=== PATIENT | male | born 1965 | race Caucasian/White ===

== ENCOUNTER 2019-10-12 22:52 | Emergency (ER) | payer BC ==
[~2019-10-12] VITALS: Ht 180.3 cm; Wt 132.5 kg
[2019-10-12] MEDS ORDERED: KETOROLAC 30 MG/ML VIAL (J1885) IV ONE (23:30)
[2019-10-13 00:06] LABS: INR 1.05; PARTIAL THROMBOPLASTIN TIME 26.1 SECONDS (25.0-38.4); PROTHROMBIN TIME 13.4 SECONDS (11.8-14.0)
[2019-10-13 00:09] LABS: D-DIMER QUANT 293.08 ng/ml (<500)
[2019-10-13 00:10] LABS: BASO # 0.1 10^3/uL (0.0-0.2); BASO % 0.7 % (0.0-1.0); EOS # 0.2 10^3/uL (0.0-0.5); EOS % 2.1 % (0.0-3.0); HEMATOCRIT 45.5 % (42.0-52.0); LYMPH # 2.3 10^3/uL (1.5-5.0); LYMPH % 22.4 % (24.0-44.0); MEAN CORPUSCULAR HGB CONC 35.2 g/dl (32.0-36.5); MEAN CORPUSCULAR VOLUME 85.4 fl (80.0-96.0); MONO % 10.2 % (0.0-5.0); NEUTROPHILS # 6.5 10^3/uL (1.5-8.5); PLATELET COUNT, AUTOMATED 214 10^3/uL (150-450); RED BLOOD COUNT 5.33 10^6/uL (4.30-6.10); WHITE BLOOD COUNT 10.1 10^3/uL (4.0-10.0)
[2019-10-13 00:12] LABS: ERYTHROCYTE SEDIMENTATION RATE 26 mm/hr (0-20)
[2019-10-13 00:19] LABS: ALBUMIN 3.9 GM/DL (3.2-5.2); BILIRUBIN,DIRECT 0.1 MG/DL (0.0-0.2); BILIRUBIN,TOTAL 0.5 MG/DL (0.2-1.0); C REACTIVE PROTEIN QUANTITATIV 0.41 MG/DL (0.00-0.30)
[2019-10-13 00:36] LABS: HEMOGLOBIN A1c 9.6 %
[2019-10-13 00:56] LABS: URIC ACID 3.9 MG/DL (3.5-7.2)
[2019-10-13] MEDS ORDERED: NAPR-837 PO (01:08)
[2019-10-13] MEDS ORDERED: COLC1TAB13 PO (01:08)
[2019-10-13 01:40] VITALS: BP 150/88
--- NOTE | 2019-10-13 06:38 | ECGEPIP ---
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
--- NOTE | 2019-10-13 11:31 | REP ---
LEFT SHOULDER SERIES: 10/12/2019. Clinical history: Left shoulder pain. Findings: No prior study. Prominent spurring from the clavicle and acromion at the AC joint and a peripheral acromial spur. Glenohumeral joint degenerative changes also noted. No fracture of the humerus, clavicles, scapula or ribs visible. There is soft tissue calcification about the greater tuberosity humeral head suggesting calcific tendinopathy. No subluxation or dislocation. Impression: 1. AC joint arthritis that may be contributing to some impingement at the rotator cuff. 2. Glenohumeral joint arthritis. 3. Calcific tendinopathy over the greater tuberosity of the humeral head. No fracture. Electronically Signed by Ga Giang MD 10/13/2019 08:24 P
--- NOTE | 2019-10-13 14:30 | REP ---
CHEST PA AND LATERAL: 10/12/2019. Clinical history: Left shoulder pain. Findings: No prior studies. The two-view show the lungs well inflated. CP angles are sharply defined. There is no pleural effusion, lateral pleural thickening, apical scar, pneumothorax. Hilar contours symmetric, mildly prominent suggesting some pulmonary artery hypertension. I do not see pulmonary edema, dense consolidation or parenchymal mass. Heart not enlarged. Aorta is tortuous but without aneurysm. Airway intact. Bony thorax without compression deformity. There are degenerative changes in the mid thoracic spine. Impression: 1. Some mild hyperinflation and prominence pulmonary arteries suggesting pulmonary artery hypertension, likely on the basis of COPD. 2. No cardiomegaly, edema or other acute finding. Electronically Signed by Ga Giang MD 10/13/2019 08:31 P
== END 2019-10-13 01:41 | disposition home or self-care (01) ==
LOC: M ED 22:52
DX: M10.012 Idiopathic gout, left shoulder (principal); E11.9 Type 2 diabetes mellitus without complications; M19.012 Primary osteoarthritis, left shoulder; M65.222 Calcific tendinitis, left upper arm; R91.8 Other nonspecific abnormal finding of lung field; Z88.5 Allergy status to narcotic agent; Z79.899 Other long term (current) drug therapy
CPT/HCPCS: 71046; 73030; 80047; 80076; 83036; 84550; 85025; 85379; 85610; 85652; 85730; 86140; 93005; 96374; 99284; J1885

== ENCOUNTER → 2019-10-31 | Outpatient (REF) | payer BC ==
[~2019-10-31] MED LIST: COLC1TAB13 PO; NAPR-837 PO
[2019-10-31 15:15] LABS: BASO # 0.1 10^3/uL (0.0-0.2); BASO % 0.9 % (0.0-1.0); EOS # 0.2 10^3/uL (0.0-0.5); EOS % 2.2 % (0.0-3.0); HEMATOCRIT 50.6 % (42.0-52.0); HEMOGLOBIN 17.1 g/dl (13.5-17.5); LYMPH # 2.3 10^3/uL (1.5-5.0); LYMPH % 29.8 % (24.0-44.0); MEAN CORPUSCULAR HEMOGLOBIN 29.9 pg (27.0-33.0); MEAN CORPUSCULAR HGB CONC 33.8 g/dl (32.0-36.5); MEAN CORPUSCULAR VOLUME 88.5 fl (80.0-96.0); MONO # 0.6 10^3/uL (0.0-0.8); NEUTROPHILS # 4.4 10^3/uL (1.5-8.5); NEUTROPHILS % 58.7 % (36.0-66.0); PLATELET COUNT, AUTOMATED 197 10^3/uL (150-450); RED BLOOD COUNT 5.72 10^6/uL (4.30-6.10); WHITE BLOOD COUNT 7.6 10^3/uL (4.0-10.0)
[2019-10-31 15:25] LABS: ALBUMIN 4.1 GM/DL (3.2-5.2); ALT/SGPT 37 U/L (12-78); BILIRUBIN,TOTAL 0.7 MG/DL (0.2-1.0); BLOOD UREA NITROGEN 14 MG/DL (7-18); CALCIUM LEVEL 9.1 MG/DL (8.5-10.1); CARBON DIOXIDE LEVEL 30 MEQ/L (21-32); CHLORIDE LEVEL 97 MEQ/L (98-107); CHOLESTEROL LEVEL 255 MG/DL (<200); CREATININE FOR GFR 0.78 MG/DL (0.70-1.30); FREE T4 1.09 NG/DL (0.76-1.46); GLOMERULAR FILTRATION RATE > 60.0 (>56); GLUCOSE, FASTING 225 MG/DL (70-100); HDL CHOLESTEROL 43 MG/DL (>40); LDL CHOLESTEROL 178 MG/DL (<100); NON-HDL-C 212 MG/DL; POTASSIUM SERUM 4.1 MEQ/L (3.5-5.1); PTH INTACT 23.3 PG/ML (18.5-88.0); SODIUM LEVEL 135 MEQ/L (136-145); TRIGLYCERIDES LEVEL 171 MG/DL (<150)
[2019-10-31 15:34] LABS: APPEARANCE, URINE CLEAR (CLEAR); BACTERIA, URINE AUTO NEGATIVE (NEGATIVE); BILIRUBIN, URINE AUTO NEGATIVE (NEGATIVE); BLOOD, URINE BLOOD NEGATIVE (NEGATIVE); COLOR, URINE YELLOW (YELLOW); GLUCOSE, URINE (UA) AUTO 3+ mg/dL (NEGATIVE); KETONE, URINE AUTO NEGATIVE (NEGATIVE); LEUKOCYTE ESTERASE, URINE AUTO NEGATIVE (NEGATIVE); MUCUS, URINE SMALL (NEGATIVE); NITRITE, URINE AUTO NEGATIVE (NEGATIVE); PROTEIN, URINE AUTO NEGATIVE (NEGATIVE); RBC, URINE AUTO 3 /HPF (0-3); SQUAMOUS EPITHELIAL CELL UR AU 0 /HPF (0-6); UROBILINOGEN, URINE AUTO 0.2 mg/dL (0.0-2.0); WBC, URINE AUTO 1 /HPF (0-3)
[2019-10-31 15:49] LABS: MALB URINE SIEMENS 27.9 MG/L; MAU/CREAT RATIO 22.5 MCG/MG (0.0-30.0)
[2019-11-01 14:07] LABS: H PYLORI SERUM QUANT IgG ABY 3.49 (0.00-0.79); INSULIN LEVEL 10.7 uIU/mL (2.6-24.9)
== END ==
LOC: M SFHCPLAZ 11:10
PROVIDERS: ATTEND Family Medicine
DX: Z12.5 Encounter for screening for malignant neoplasm of prostate (principal); E78.2 Mixed hyperlipidemia; E11.8 Type 2 diabetes mellitus with unspecified complications; I10 Essential (primary) hypertension; E55.9 Vitamin D deficiency, unspecified; M75.42 Impingement syndrome of left shoulder
CPT/HCPCS: 36415; 80053; 80061; 81001; 82043; 82306; 83525; 83970; 84439; 84443; 85025; 86677; G0103

== ENCOUNTER → 2020-03-10 | Outpatient (CLI) | payer BC ==
[~2020-03-10] MED LIST changes: +METF500T13 PO
== END ==
LOC: M LABSMTC 14:08
PROVIDERS: ATTEND Anesthesiology
DX: Z03.818 Encounter for observation for suspected exposure to other biological agents ruled out (principal); Z11.59 Encounter for screening for other viral diseases
CPT/HCPCS: C9803; U0003

== ENCOUNTER 2020-03-13 06:35 | Day surgery (SDC) | payer BC ==
[~2020-03-13] VITALS: Ht 180.3 cm; Wt 131.5 kg
[2020-03-13] MEDS ORDERED: NS 1,000 ML IV ONE (07:00)
[2020-03-13] MEDS ORDERED: propofoL 200 MG/20 ML VIAL As Ordered ONE (07:50)
--- NOTE | 2020-03-13 07:59 | ROOR ---
Patient Name: Andrew Sharpe Procedure Date: 03/13/2020 7:25 AM Date of : 1965 Age: 54 Room: [facility] Gender: Male Note Status: Finalized Procedure: Total Colonoscopy to Cecum + Cold Snare + Biopsies Polypectomy + Hemoclips Indications: Screening for colorectal malignant neoplasm Providers: Polo Knott MD Referring MD: Jordin Hall MD Requesting Provider: Medicines: Monitored Anesthesia Care Complications: No immediate complications. Procedure: Pre-Anesthesia Assessment: - The heart rate, respiratory rate, oxygen saturations, blood pressure, adequacy of pulmonary ventilation, and response to care were monitored throughout the procedure. The Colonoscope was introduced through the anus and advanced to the cecum, identified by appendiceal orifice and ileocecal valve. The colonoscopy was performed without difficulty. The patient tolerated the procedure well. The quality of the bowel preparation was good. Findings: The perianal and digital rectal examinations were normal. Non-bleeding internal hemorrhoids were found during retroflexion. The hemorrhoids were small and Grade I (internal hemorrhoids that do not prolapse). A small polyp was found at 30 cm proximal to the anus. The polyp was sessile. The polyp was removed with a cold snare. Resection and retrieval were complete. To prevent bleeding after the polypectomy, one hemostatic clip was successfully placed (MR conditional). There was no bleeding at the end of the procedure. A small polyp was found at 50 cm proximal to the anus. The polyp was sessile. The polyp was removed with a cold biopsy forceps. Resection and retrieval were complete. The exam was otherwise without abnormality on direct and retroflexion views. Scattered small-mouthed diverticula were found in the recto-sigmoid colon, sigmoid colon and descending colon. The exam was otherwise without abnormality. Impression: - Non-bleeding internal hemorrhoids. - One small polyp at 30 cm proximal to the anus, removed with a cold snare. Resected and retrieved. Clip (MR conditional) was placed. - One small polyp at 50 cm proximal to the anus, removed with a cold biopsy forceps. Resected and retrieved. - The examination was otherwise normal on direct and retroflexion views. - Diverticulosis in the recto-sigmoid colon, in the sigmoid colon and in the descending colon. - The examination was otherwise normal. - The exam was otherwise normal to the cecum. Recommendation: - Patient has a contact number available for emergencies. The signs and symptoms of potential delayed complications were discussed with the patient. Return to normal activities tomorrow. Written discharge instructions were provided to the patient. - High fiber diet. - Discharge patient to home. - Continue present medications. - Await pathology results. - Telephone GI clinic for pathology results in 1 week. - Repeat colonoscopy in 5 years for surveillance based on pathology results. - Return to referring physician. - The findings and recommendations were discussed with the patient's family. Polo Knott MD Polo Knott MD 03/13/2020 7:58:22 AM Electronically signed by Polo Knott MD Number of Addenda: 0 Note Initiated On: 03/13/2020 7:25 AM Estimated Blood Loss: Estimated blood loss: none.
[2020-03-13 08:20] VITALS: BP 138/96
== END 2020-03-13 08:29 | disposition home or self-care (01) ==
LOC: M OPP 06:35
PROVIDERS: ATTEND Internal Medicine Gastroenterology
DX: Z12.11 Encounter for screening for malignant neoplasm of colon (principal); K63.5 Polyp of colon; K64.0 First degree hemorrhoids; K57.30 Diverticulosis of large intestine without perforation or abscess without bleeding; Z79.84 Long term (current) use of oral hypoglycemic drugs; Z88.5 Allergy status to narcotic agent; F17.210 Nicotine dependence, cigarettes, uncomplicated

== ENCOUNTER 2020-11-24 19:24 | Emergency (ER) | payer BC ==
[~2020-11-24] VITALS: Ht 180.3 cm; Wt 131.4 kg
[~2020-11-24 19:24] MED LIST changes: +COLC0.6T47 PO; -COLC1TAB13 PO
[2020-11-24 21:21] LABS: BASO # 0.1 10^3/uL (0.0-0.2); BASO % 0.8 % (0.0-1.0); EOS # 0.3 10^3/uL (0.0-0.5); EOS % 4.6 % (0.0-3.0); HEMATOCRIT 43.7 % (42.0-52.0); HEMOGLOBIN 14.4 g/dl (13.5-17.5); LYMPH # 2.8 10^3/uL (1.5-5.0); LYMPH % 38.4 % (24.0-44.0); MEAN CORPUSCULAR HEMOGLOBIN 28.7 pg (27.0-33.0); MEAN CORPUSCULAR VOLUME 87.2 fl (80.0-96.0); MONO # 0.8 10^3/uL (0.0-0.8); MONO % 10.5 % (2.0-8.0); NEUTROPHILS # 3.3 10^3/uL (1.5-8.5); NEUTROPHILS % 45.4 % (36.0-66.0); PLATELET COUNT, AUTOMATED 203 10^3/uL (150-450); RED BLOOD COUNT 5.01 10^6/uL (4.30-6.10); WHITE BLOOD COUNT 7.3 10^3/uL (4.0-10.0)
[2020-11-24 21:46] LABS: ALBUMIN 3.6 GM/DL (3.2-5.2); ALT/SGPT 27 U/L (12-78); BILIRUBIN,DIRECT < 0.1 MG/DL (0.0-0.2); BILIRUBIN,TOTAL 0.5 MG/DL (0.2-1.0); BLOOD UREA NITROGEN 16 MG/DL (7-18); CALCIUM LEVEL 8.7 MG/DL (8.5-10.1); CARBON DIOXIDE LEVEL 29 MEQ/L (21-32); CHLORIDE LEVEL 100 MEQ/L (98-107); CREATININE FOR GFR 0.88 MG/DL (0.70-1.30); GLOMERULAR FILTRATION RATE > 60.0 (>56); GLUCOSE, FASTING 297 MG/DL (70-100); SODIUM LEVEL 134 MEQ/L (136-145); TOTAL PROTEIN 7.6 GM/DL (6.4-8.2)
[2020-11-24 21:50] LABS: ERYTHROCYTE SEDIMENTATION RATE 18 mm/hr (0-20)
--- NOTE | 2020-11-24 22:08 | REPVR ---
PROCEDURE INFORMATION: Exam: XR Left Toe(s) Exam date and time: 11/24/2020 9:31 PM Age: 55 years old Clinical indication: Other: Infection; Additional info: Left great toe infection; ? Osteo TECHNIQUE: Imaging protocol: XR Left toes. Views: Minimum 2 views. COMPARISON: No relevant prior studies available. FINDINGS: Bones/joints: Large ulceration on the medial aspect of the great toe. No cortical abnormality of the underlying bones. Soft tissues: Normal. IMPRESSION: No bony abnormality underlying the ulceration to suggest osteomyelitis. Electronically signed by: Vinod Nieves On 11/24/2020 22:09:24 PM
[2020-11-24 22:44] VITALS: BP 145/88
== END 2020-11-24 22:49 | disposition home or self-care (01) ==
LOC: M ED 19:24
DX: E11.621 Type 2 diabetes mellitus with foot ulcer (principal); Z88.6 Allergy status to analgesic agent; Z79.899 Other long term (current) drug therapy

== ENCOUNTER → 2021-04-19 | Outpatient (CLI) | payer BC ==
[2021-04-19 11:44] LABS: BASO # 0.1 10^3/uL (0.0-0.2); BASO % 0.6 % (0.0-1.0); EOS # 0.5 10^3/uL (0.0-0.5); EOS % 5.8 % (0.0-3.0); HEMATOCRIT 46.7 % (42.0-52.0); HEMOGLOBIN 15.9 g/dl (13.5-17.5); LYMPH # 2.2 10^3/uL (1.5-5.0); LYMPH % 27.3 % (24.0-44.0); MEAN CORPUSCULAR HEMOGLOBIN 29.9 pg (27.0-33.0); MEAN CORPUSCULAR VOLUME 87.9 fl (80.0-96.0); MONO # 0.9 10^3/uL (0.0-0.8); MONO % 10.7 % (2.0-8.0); NEUTROPHILS # 4.4 10^3/uL (1.5-8.5); NEUTROPHILS % 55.3 % (36.0-66.0); PLATELET COUNT, AUTOMATED 223 10^3/uL (150-450); RED BLOOD COUNT 5.31 10^6/uL (4.30-6.10)
[2021-04-19 12:11] LABS: ALBUMIN 3.9 GM/DL (3.2-5.2); ALT/SGPT 32 U/L (12-78); BILIRUBIN,TOTAL 0.5 MG/DL (0.2-1.0); BLOOD UREA NITROGEN 14 MG/DL (7-18); C REACTIVE PROTEIN QUANTITATIV 0.51 MG/DL (0.00-0.30); CALCIUM LEVEL 9.1 MG/DL (8.5-10.1); CARBON DIOXIDE LEVEL 28 MEQ/L (21-32); CHLORIDE LEVEL 103 MEQ/L (98-107); CHOLESTEROL LEVEL 218 MG/DL (<200); CHOLESTEROL RISK RATIO 6.228 (<5); GLOMERULAR FILTRATION RATE > 60.0 (>56); GLUCOSE, FASTING 139 MG/DL (70-100); HDL CHOLESTEROL 35 MG/DL (>40); HEMOGLOBIN A1c 7.4 %; LDL CHOLESTEROL 135 MG/DL (<100); NON-HDL-C 183 MG/DL; POTASSIUM SERUM 4.2 MEQ/L (3.5-5.1); SODIUM LEVEL 138 MEQ/L (136-145); TRIGLYCERIDES LEVEL 240 MG/DL (<150)
[2021-04-19 12:25] LABS: ERYTHROCYTE SEDIMENTATION RATE 5 mm/hr (0-20)
[2021-04-21 16:09] LABS: Chitobioside Carbohydrat (ACCA 77 units (0-90); Laminaribioside Carbohyd (ALCA 15 units (0-60); Mannobioside Carbohydrat (AMCA 44 units (0-100); Saccharomyces cerevisiae IgG A 42 units (0-50)
== END ==
LOC: M WUC 09:39
PROVIDERS: ATTEND Physician Assistant
DX: K60.3 Anal fistula (principal); E78.2 Mixed hyperlipidemia; E11.8 Type 2 diabetes mellitus with unspecified complications; I10 Essential (primary) hypertension

== ENCOUNTER → 2021-06-09 | Outpatient (REF) | payer BC | LOC: M LAB REF 19:34 | PROVIDERS: ATTEND Physician Assistant | DX: L02.31 Cutaneous abscess of buttock (principal) ==

== ENCOUNTER → 2022-01-28 | Outpatient (CLI) | payer BC, OTHER ==
[2022-01-28 14:05] LABS: ALBUMIN 3.8 GM/DL (3.2-5.2); ALT/SGPT 25 U/L (12-78); BILIRUBIN,TOTAL 0.7 MG/DL (0.2-1.0); BLOOD UREA NITROGEN 14 MG/DL (7-18); CALCIUM LEVEL 9.1 MG/DL (8.5-10.1); CARBON DIOXIDE LEVEL 29 MEQ/L (21-32); CHLORIDE LEVEL 104 MEQ/L (98-107); CHOLESTEROL LEVEL 117 MG/DL (<200); CHOLESTEROL RISK RATIO 3.162 (<5); CREATININE FOR GFR 0.74 MG/DL (0.70-1.30); FREE T4 0.98 NG/DL (0.76-1.46); GLOMERULAR FILTRATION RATE > 60.0 (>56); GLUCOSE, FASTING 116 MG/DL (70-100); HDL CHOLESTEROL 37 MG/DL (>40); LDL CHOLESTEROL 60 MG/DL (<100); NON-HDL-C 80 MG/DL; NT-PRO BNP 41 PG/ML (<125); POTASSIUM SERUM 4.2 MEQ/L (3.5-5.1); SODIUM LEVEL 138 MEQ/L (136-145); TOTAL PROTEIN 7.4 GM/DL (6.4-8.2); TRIGLYCERIDES LEVEL 102 MG/DL (<150)
[2022-01-28 14:08] LABS: PTH INTACT 21.9 PG/ML (18.5-88.0); TOTAL 25(OH) VITAMIN D 22.7 NG/ML (30.0-100.0)
[2022-01-28 15:14] LABS: HEMOGLOBIN A1c 6.9 %
== END ==
LOC: M PLALAB 09:41
PROVIDERS: ATTEND Family Medicine
DX: E11.8 Type 2 diabetes mellitus with unspecified complications (principal); E55.9 Vitamin D deficiency, unspecified; Z12.5 Encounter for screening for malignant neoplasm of prostate
CPT/HCPCS: 36415; 80053; 80061; 82306; 83036; 83525; 83880; 83970; 84439; 84443; G0103

== ENCOUNTER → 2023-03-15 | Outpatient (CLI) | payer BC, OTHER ==
[2023-03-15 15:00] LABS: BASO % 0.5 % (0.0-1.0); EOS # 0.2 10^3/uL (0.0-0.5); EOS % 2.7 % (0.0-3.0); HEMATOCRIT 42.8 % (42.0-52.0); HEMOGLOBIN 13.9 g/dl (13.5-17.5); LYMPH % 25.3 % (24.0-44.0); MEAN CORPUSCULAR HEMOGLOBIN 29.3 pg (27.0-33.0); MEAN CORPUSCULAR HGB CONC 32.5 g/dl (32.0-36.5); MEAN CORPUSCULAR VOLUME 90.3 fl (80.0-96.0); MONO # 0.9 10^3/uL (0.0-0.8); MONO % 11.5 % (2.0-8.0); NEUTROPHILS # 4.7 10^3/uL (1.5-8.5); NEUTROPHILS % 59.6 % (36.0-66.0); PLATELET COUNT, AUTOMATED 204 10^3/uL (150-450); RED BLOOD COUNT 4.74 10^6/uL (4.30-6.10); WHITE BLOOD COUNT 7.9 10^3/uL (4.0-10.0)
[2023-03-15 15:07] LABS: ALBUMIN 3.6 G/DL (3.2-5.2); ALKALINE PHOSPHATASE 78 U/L (46-116); ALT/SGPT 18 U/L (7.0-40); AST/SGOT 10 U/L (<34); BILIRUBIN,TOTAL 0.8 MG/DL (0.3-1.2); BLOOD UREA NITROGEN 15 MG/DL (9-23); CALCIUM LEVEL 9.3 MG/DL (8.5-10.1); CARBON DIOXIDE LEVEL 30 MMOL/L (20-31); CHLORIDE LEVEL 100 MMOL/L (98-107); CREATININE FOR GFR 0.64 MG/DL (0.70-1.30); FERRITIN 194.5 NG/ML (10.5-307.3); GLOMERULAR FILTRATION RATE > 60.0 (>56); GLUCOSE, FASTING 176 MG/DL (60-100); POTASSIUM SERUM 4.5 MMOL/L (3.5-5.1); SODIUM LEVEL 134 MMOL/L (136-145); TOTAL PROTEIN 7.1 G/DL (5.7-8.2)
[2023-03-15 15:08] LABS: VITAMIN B12 LEVEL 399 PG/ML (211-911)
[2023-03-15 15:12] LABS: URIC ACID 4.6 MG/DL (3.7-9.2)
[2023-03-15 15:12] LABS: ERYTHROCYTE SEDIMENTATION RATE 66 mm/hr (0-20)
[2023-03-15 17:38] LABS: HEMOGLOBIN A1c 6.7 % (4.0-6.0)
[2023-03-19 08:08] LABS: INSULIN LEVEL 17.1 uIU/mL (2.6-24.9)
== END ==
LOC: M PLALAB 09:23
PROVIDERS: ATTEND Physician Assistant Medical
DX: R59.1 Generalized enlarged lymph nodes (principal); I10 Essential (primary) hypertension; E11.8 Type 2 diabetes mellitus with unspecified complications; K76.0 Fatty (change of) liver, not elsewhere classified

== ENCOUNTER → 2023-03-16 | Outpatient (CLI) | payer BC, OTHER | LOC: M RAD 14:50 | PROVIDERS: ATTEND Physician Assistant Medical | DX: R59.0 Localized enlarged lymph nodes (principal) ==

== ENCOUNTER → 2023-03-28 | Outpatient (CLI) | payer BC, OTHER | LOC: M PLAIMG 13:13 | PROVIDERS: ATTEND Physician Assistant Medical | DX: R59.0 Localized enlarged lymph nodes (principal) ==

== ENCOUNTER → 2023-03-28 | Outpatient (CLI) | payer BC, OTHER | LOC: M RAD 14:26 | PROVIDERS: ATTEND Physician Assistant Medical | DX: L97.509 Non-pressure chronic ulcer of other part of unspecified foot with unspecified severity (principal); M19.072 Primary osteoarthritis, left ankle and foot; R60.0 Localized edema ==

== ENCOUNTER 2023-03-31 10:37 | Inpatient (IN) | payer BC, OTHER ==
[~2023-03-31] VITALS: Ht 180.3 cm; Wt 129.0 kg
[2023-03-31] MEDS ORDERED: JANU100T PO (11:08)
[2023-03-31] MEDS ORDERED: ASPI-226 PO (11:08)
[2023-03-31] MEDS ORDERED: METF850T4 PO (11:08)
[2023-03-31] MEDS ORDERED: BENA1TAB24 PO (11:08)
[2023-03-31] MEDS ORDERED: ROSU20TA61 PO (11:08)
[2023-03-31] MEDS ORDERED: AMOX875T2 PO (11:08)
[2023-03-31] MEDS ORDERED: VANCOMYCIN HCL 2,000 MG in D5W 500 ML IV ONE (11:30)
[2023-03-31 11:48] LABS: BASO # 0.1 10^3/uL (0.0-0.2); BASO % 0.9 % (0.0-1.0); EOS # 0.2 10^3/uL (0.0-0.5); EOS % 2.6 % (0.0-3.0); HEMATOCRIT 42.3 % (42.0-52.0); LYMPH # 2.3 10^3/uL (1.5-5.0); LYMPH % 29.5 % (24.0-44.0); MEAN CORPUSCULAR HEMOGLOBIN 29.5 pg (27.0-33.0); MEAN CORPUSCULAR HGB CONC 33.1 g/dl (32.0-36.5); MEAN CORPUSCULAR VOLUME 89.1 fl (80.0-96.0); MONO # 0.7 10^3/uL (0.0-0.8); MONO % 8.8 % (2.0-8.0); NEUTROPHILS # 4.5 10^3/uL (1.5-8.5); NEUTROPHILS % 57.8 % (36.0-66.0); PLATELET COUNT, AUTOMATED 237 10^3/uL (150-450); RED BLOOD COUNT 4.75 10^6/uL (4.30-6.10); WHITE BLOOD COUNT 7.8 10^3/uL (4.0-10.0)
[2023-03-31] MEDS ORDERED: VANCOMYCIN HCL 1,000 MG, VIAL MATE ADAPTER 1 EACH in D5W 250 ML IV ONE ×2 (12:00→13:00)
[2023-03-31 12:13] LABS: C REACTIVE PROTEIN QUANTITATIV < 0.40 MG/DL (<1.0)
[2023-03-31 12:14] LABS: ALBUMIN 3.7 G/DL (3.2-5.2); ALKALINE PHOSPHATASE 84 U/L (46-116); ALT/SGPT 19 U/L (7.0-40); AST/SGOT 13 U/L (<34); BILIRUBIN,DIRECT 0.2 MG/DL (<0.4); BILIRUBIN,TOTAL 0.5 MG/DL (0.3-1.2); BLOOD UREA NITROGEN 17 MG/DL (9-23); CALCIUM LEVEL 8.7 MG/DL (8.5-10.1); CARBON DIOXIDE LEVEL 29 MMOL/L (20-31); CHLORIDE LEVEL 100 MMOL/L (98-107); CREATININE FOR GFR 0.62 MG/DL (0.70-1.30); GLOMERULAR FILTRATION RATE > 60.0 (>56); GLUCOSE, FASTING 149 MG/DL (60-100); POTASSIUM SERUM 4.5 MMOL/L (3.5-5.1); SODIUM LEVEL 137 MMOL/L (136-145); TOTAL PROTEIN 7.3 G/DL (5.7-8.2)
[2023-03-31 12:20] LABS: ERYTHROCYTE SEDIMENTATION RATE 46 mm/hr (0-20)
[2023-03-31] MEDS ORDERED: MED REC IN PROGRESS XX SCH (13:25)
[2023-03-31] MEDS ORDERED: HOME MED LIST COMPLETE! XX SCH (13:40)
[2023-03-31] MEDS ORDERED: ACETAMINOPHEN TAB 650MG DOSE (2X325MG) PO PRN (14:55)
[2023-03-31] MEDS ORDERED: GLUCOSE 4GM CHEW TABLET PO PRN (15:00)
[2023-03-31] MEDS ORDERED: GLUCAGON INJ 1MG VIAL SC PRN (15:00)
[2023-03-31] MEDS ORDERED: VANCOMYCIN HCL 1,000 MG, VIAL MATE ADAPTER 1 EACH in D5W 250 ML IV SCH (15:00)
[2023-03-31] MEDS ORDERED: DEXTROSE 50% 50ML SYRINGE IV PRN (15:00)
[2023-03-31] MEDS ORDERED: PIPERACILLIN/TAZOBACTAM SOD 4.5 GM in D5W MINI-BAG PLUS 50 ML IV SCH (16:00)
[2023-03-31 16:20] VITALS: BP 134/89; TEMP 97.6; O2SAT 96
[2023-03-31] MEDS ORDERED: CEPH750C PO (17:25)
[2023-03-31] MEDS ORDERED: INSULIN LISPRO (NovoLOG) PER UNIT SC SCH ×2 (17:30→21:00)
[2023-03-31] MEDS ORDERED: VANCOMYCIN HCL 750 MG, VIAL MATE ADAPTER 1 EACH in D5W 250 ML IV SCH (21:00)
[2023-03-31] MEDS ORDERED: VANCOMYCIN HCL 500 MG in D5W MINI-BAG PLUS 100 ML IV SCH (22:00)
[2023-04-01] MEDS ORDERED: ASPIRIN 81MG ENTERIC TABLET PO SCH (09:00)
[2023-04-01] MEDS ORDERED: ROSUVASTATIN 10 MG TAB (CRESTOR) PO SCH (09:00)
== END 2023-03-31 18:22 | disposition home or self-care (01) | DRG 344 ==
LOC: M ED 10:37 → M ED INP 14:02 → ENRESERV 15:06 → M MSPAV 15:34
PROVIDERS: ADMIT Student in an Organized Health Care Education/Training Program; ATTEND Student in an Organized Health Care Education/Training Program
PROC: 0JBR0ZZ Excision of Left Foot Subcutaneous Tissue and Fascia, Open Approach (ICD-10-PCS; principal; 2023-03-31)
DX: E11.69 Type 2 diabetes mellitus with other specified complication (principal); E11.51 Type 2 diabetes mellitus with diabetic peripheral angiopathy without gangrene; M86.172 Other acute osteomyelitis, left ankle and foot; I10 Essential (primary) hypertension; E78.5 Hyperlipidemia, unspecified; M17.2 Bilateral post-traumatic osteoarthritis of knee; Z79.82 Long term (current) use of aspirin; Z79.899 Other long term (current) drug therapy; Z88.5 Allergy status to narcotic agent

== ENCOUNTER → 2023-10-12 | Outpatient (REF) | payer BC, OTHER ==
[~2023-10-12] MED LIST changes: +AMOX875T2 PO; +ASPI-226 PO; +BENA1TAB24 PO; +CEPH750C PO; +JANU100T PO; +METF850T4 PO; +ROSU20TA61 PO
== END ==
LOC: M SFHCPLAZ 13:14
PROVIDERS: ATTEND Student in an Organized Health Care Education/Training Program
DX: R68.89 Other general symptoms and signs (principal)

== ENCOUNTER → 2025-08-06 | Outpatient (CLI) | payer BC, OTHER ==
[~2025-08-06] MED LIST changes: -COLC0.6T47 PO; +COLC0.6T53 PO; -ROSU20TA61 PO; +ROSU20TA86 PO
[2025-08-06 10:31] LABS: BASO # 0.0 10^3/uL (0.0-0.2); BASO % 0.7 % (0.0-1.0); EOS # 0.3 10^3/uL (0.0-0.5); EOS % 4.7 % (0.0-3.0); LYMPH # 2.1 10^3/uL (1.5-5.0); LYMPH % 39.6 % (24.0-44.0); MONO # 0.6 10^3/uL (0.0-0.8); MONO % 10.3 % (2.0-8.0); NEUTROPHILS # 2.4 10^3/uL (1.5-8.5); NEUTROPHILS % 44.3 % (36.0-66.0); PLATELET COUNT, AUTOMATED 183 10^3/uL (150-450)
[2025-08-06 10:38] LABS: ALT/SGPT 34 U/L (7.0-40); AST/SGOT 19 U/L (<34); CALCIUM LEVEL 8.8 MG/DL (8.5-10.1); CARBON DIOXIDE LEVEL 31 MMOL/L (20-31); CHLORIDE LEVEL 97 MMOL/L (98-107); CHOLESTEROL LEVEL 261 MG/DL (<200); CHOLESTEROL RISK RATIO 5.87 (<5); CREATININE FOR GFR 0.74 MG/DL (0.70-1.30); GLOMERULAR FILTRATION RATE > 90.0 (>56); LDL CHOLESTEROL 164.8 MG/DL (<100); NON-HDL-C 216.6 MG/DL; POTASSIUM SERUM 4.4 MMOL/L (3.5-5.1); PSA SCREENING 0.05 NG/ML (< 4.00); SODIUM LEVEL 138 MMOL/L (136-145); TRIGLYCERIDES LEVEL 259 MG/DL (<150)
[2025-08-06 10:40] LABS: FREE T4 1.04 NG/DL (0.89-1.76)
[2025-08-06 10:47] LABS: ESTIMATED AVERAGE GLUCOSE 212.0 MG/DL (60-110)
[2025-08-06 10:54] LABS: CREATININE, URINE 178.4 MG/DL
[2025-08-06 10:55] LABS: MALB URINE SIEMENS 25.0 MG/L; MAU/CREAT RATIO 14.0 MCG/MG (0.0-30.0); VITAMIN B12 LEVEL 667 PG/ML (211-911)
[2025-08-08 16:20] LABS: INSULIN LEVEL 6.5 uIU/mL (<=18.4)
== END ==
LOC: M PLALAB 07:10
PROVIDERS: ATTEND Family Medicine
DX: I10 Essential (primary) hypertension (principal); E11.8 Type 2 diabetes mellitus with unspecified complications; E78.2 Mixed hyperlipidemia; Z12.5 Encounter for screening for malignant neoplasm of prostate; K75.81 Nonalcoholic steatohepatitis (NASH)
CPT/HCPCS: 36415; 80053; 80061; 81517; 82043; 82607; 82728; 83036; 83525; 83880; 84439; 84443; 84550; 85025; G0103